=== PATIENT | male | born 1990 | race Two or more races ===

== ENCOUNTER 2022-03-05 16:52 | Outpatient (CLI) | payer OTHER, SELFPAY ==
--- NOTE | ~2022-03-05 | XR_ITS ---
EXAM: XR lumbar spine min 4V DATE: 03/05/2022 17:20 HISTORY: Lumbagow/sciatica,pain shoots down rt side,accident 1mon ago . COMPARISON: None available. FINDINGS: 5 nonrib-bearing lumbar-type vertebral bodies. Pedicles intact. 2 mm retrolisthesis at L5- S1, otherwise normal vertebral body alignment. Vertebral body heights preserved. Disc spaces maintain ed. Normal facets and posterior elements. No pars defect. No fracture or dislocation. IMPRESSION: Grade 1 retrolisthesis at L5-S1. Otherwise normal lumbar spine radiograph findings. Reviewed, dictated and finalized at location K. IMPRESSION: Grade 1 retrolisthesis at L5-S1. Otherwise normal lumbar spine radi ograph findings.
== END 2022-03-05 16:53 | disposition home or self-care (01) ==
LOC: ANHIMG 16:55
PROVIDERS: PCP Emergency Medicine; Visit Provider Emergency Medicine
DX: M54.41 Lumbago with sciatica, right side (principal)
CPT/HCPCS: 72110

== ENCOUNTER 2024-11-18 11:25 | Emergency (ER) | payer OTHER, SELFPAY ==
--- NOTE | ~2024-11-18 | CT_ITS ---
CT abdomen pelvis w con Ordering provider: Dwain Corral MD History: 34 years Male with . Suprapubic pain . Comparison: None. Technique: CT abdomen and pelvis with IV and without oral contrast. Automated exposure control and it erative reconstruction technique were employed. The dose-length product was 358.42 mGy-cm. 100 mL Omn ipaque 350 was given IV. Findings: VISUALIZED LOWER CHEST: Normal. UPPER ABDOMINAL ORGANS: Liver: Normal. Gallbladder: Normal. Spleen: Normal. Stomach/duodenum: Normal. Pancreas: Normal. Adrenals: Normal. Kidneys: Normal. PELVIC ORGANS: The bladder is underfilled. BOWEL AND MESENTERY: Colon: No evidence of diverticulitis. Normal appendix. Small Bowel: Normal. No obstruction. Peritoneum/mesentery: No free air or free fluid. No mesenteric lymphadenopathy. RETROPERITONEUM: Normal aorta. No retroperitoneal lymphadenopathy. MUSCULOSKELETAL: Superficial soft tissues: Small fat-containing umbilical hernia. Otherwise, The superficial soft tiss ues are normal. Bones: Normal spine. IMPRESSION: 1. No evidence of appendicitis, diverticulitis or intestinal obstruction. No definite kidney stones. Reviewed, dictated and finalized at location A. IMPRESSION: 1. No evidence of appendicitis, diverticulitis or intestinal obstruction. No d efinite kidney stones.
[2024-11-18 11:27] VITALS: BP 143/84; PULSE 95; RESP 20; TEMP 36.6; O2SAT 99
[2024-11-18 12:08] LABS: Basophils Percent Auto 0.3 % (0.2-1.2); Eosinophils Absolute Auto 0.1 K/mm3 (0-0.3); Eosinophils Percent Auto 0.7 % (0-4.4); Hematocrit 48.6 % (42.0-52.0); Hemoglobin 16.2 g/dL (14.0-18.0); Immature Granulocyte Absolute 0.03 K/mm3 (0.00-0.031); Immature Granulocyte Percent A 0.4 % (0-0.5); Lymphocytes Absolute Auto 1.89 K/mm3 (0.9-3.2); Mean Corpuscular HGB Conc 33.3 g/dl (32-36); Mean Corpuscular Hemoglobin 28.5 pg (26-34); Mean Corpuscular Volume 85.6 fl (80-100); Mean Platelet Volume 12.7 fl (7.4-10.4); Monocytes Absolute Auto 0.5 K/mm3 (0.1-0.6); Neutrophils Absolute Auto 4.3 K/mm3 (1.3-6.7); Neutrophils Percent Auto 63.6 % (45.5-73.1); Platelet Count Result 177 k/mm3 (150-375); Red Blood Count 5.68 M/mm3 (4.6-6.20); Red Cell Distribution Width 12.4 % (11.5-14.5); White Blood Count 6.8 K/mm3 (4.5-10.0)
[2024-11-18 12:19] LABS: Alanine Aminotransferase 25 U/L (6-50); Albumin Level 5.2 g/dL (3.5-5.1); Alkaline Phosphatase 118 U/L (38-126); Anion Gap 15 mmol/L (4-12); Aspartate Amino Transferase 29 U/L (17-59); Bilirubin,Total 1.1 mg/dL (0.2-1.3); Blood Urea Nitrogen 15 mg/dL (9-20); Calcium 9.6 mg/dL (8.4-10.2); Carbon Dioxide 21 mmol/L (22-30); Chloride 99 mmol/L (98-107); Estimated CRCL calculation 68 ml/min; Estimated Glomerular Filt Rate 59; Glucose 63 mg/dL (65-110); Lipase 205 U/L (23-300); Sodium 135 mmol/L (137-145); Total Protein 8.8 g/dL (6.3-8.2)
[2024-11-18 13:08] LABS: Add Urine Microscopic? YES; Appearance Urine Clear (Clear); Bacteria Urine None Seen /hpf; Bilirubin Urine Negative (Negative); Blood Urine Negative (Negative); Color Urine Yellow (Yellow); Glucose Urine UA Negative (Negative); Ketones Urine 3+ mg/dL (Negative); Leukocyte Esterase Ur Negative LEU/UL (Negative); Nitrate Urine Negative (Negative); Protein Urine Trace mg/dL (Negative); RBC Urine 0-2 /hpf (0-2); Specific Grav Ur 1.026 (1.001-1.035); Squamous Epithelial Cell Urine None Seen /hpf (Few); WBC Urine 0-5 /hpf (0-3)
--- NOTE | 2024-11-18 13:17 | ED_ITS ---
HPI - General Adult General Chief complaint: Abdominal Pain Stated complaint: lower abdominal pain Time Seen by Provider: 11/18/24 11:53 History of Present Illness HPI narrative: This is a 34-year-old presenting with 2 weeks of lower abdominal pain. Patient says that he has burning pain in the suprapubic region and towards the left. It is going on for 2 weeks. It is constant. It is positional and worse when he lays on his side. It does not hurt to touch. There are no overlying skin changes. Patient has nausea although he says he has had nausea his entire life and is not worsened over the last 2 weeks. Last bowel movement was yesterday and was normal. He was seen in [place] 2 weeks ago and had normal blood work and urinalysis. No CT scan. Patient denies fevers chills chest pain difficulty breathing urinary systems concern for STDs penile discharge testicle pain. No history of kidney stones. Patient is very nervous about health. Patient has a typed out list on his phone with about 15 items ranging from occasional headaches in the morning, to lower back pain, to bends in his fingernails. He admits to being very anxious about his health. Related Data Allergies Allergy/AdvReac Type Severity Reaction Status Date / Time No Known Allergies Allergy Verified 11/18/24 11:26 [facility] Social History Social History (Updated 02/28/22 @ 14:52 by Delmy Diaz MA) Smoking status: Never smoker Alcohol intake: never Substance use: never Exam 2 Narrative: APPEARANCE: No apparent distress. Head: atraumatic. EYES: EOMI, NOSE: Atraumatic NECK: Trachea midline RESPIRATORY: No increased rate of breathing CARDIOVASCULAR: RRR, ABDOMINAL: Non-distended soft, nontender no guarding rebound, no masses, no hernia MUSCULOSKELETAl: No obvious deformities NEURO: Alert. Moving 4/4 extremities SKIN:: Warm, dry. Normal color PSYCHIATRIC: Normal affect Course Vital Signs Vital signs: Vital Signs Temperature 97.8 F 11/18/24 11:27 Pulse Rate 95 11/18/24 11:27 Respiratory Rate 20 11/18/24 11:27 Blood Pressure 143/84 H 11/18/24 11:27 Pulse Oximetry 99 11/18/24 11:27 Oxygen Delivery Room Air 11/18/24 11:27 Temperature 97.8 F 11/18/24 11:27 Pulse Rate 95 11/18/24 11:27 Respiratory Rate 20 11/18/24 11:27 Blood Pressure 143/84 H 11/18/24 11:27 Pulse Oximetry 99 11/18/24 11:27 Oxygen Delivery Room Air 11/18/24 11:27 Medical Decision Making MDM Narrative Medical decision making narrative: -Course: 34-year-old male presenting with 2 weeks of burning pain in suprapubic region. Laboratory studies reviewed. CBC normal. Metabolic panel showed a creatinine 1.37. No baseline available. Protein and albumin slightly elevated. Urine not indicative infection. Urine significant for 3+ ketones. Patient says he has not eaten today. CT abdomen pelvis did not reveal any causative findings. Results were discussed patient. I have encouraged follow-up with her primary care physician for management. He develops any new worsening symptoms he should return to the ED for re-evaluation. -DDX includes but is not limited to: UTI, STD, diverticulitis, appendicitis, colitis, peripheral neuropathy Vital Signs Vital Signs: Vital Signs Temperature 97.8 F 11/18/24 11:27 Pulse Rate 95 11/18/24 11:27 Respiratory Rate 20 11/18/24 11:27 Blood Pressure 143/84 H 11/18/24 11:27 Pulse Oximetry 99 11/18/24 11:27 Oxygen Delivery Room Air 11/18/24 11:27 Temperature 97.8 F 11/18/24 11:27 Pulse Rate 95 11/18/24 11:27 Respiratory Rate 11/18/24 11:27 Blood Pressure 143/84 H 11/18/24 11:27 Pulse Oximetry 99 11/18/24 11:27 Oxygen Delivery Room Air 11/18/24 11:27 Lab Data 11/18/24 11:55 11/18/24 11:55 Labs: Lab Results 11/18/24 11/18/24 Range/Units 11:55 12:53 WBC 6.8 (4.5-10.0) K/mm3 RBC 5.68 (4.6-6.20) M/mm3 Hgb 16.2 (14.0-18.0) g/dL Hct 48.6 (42.0-52.0) % MCV 85.6 (80-100) fl MCH 28.5 (26-34) pg MCHC 33.3 (32-36) g/dl RDW 12.4 (11.5-14.5) % Plt Count 177 (150-375) k/mm3 MPV 12.7 H (7.4-10.4) fl Immature Gran % (Auto) 0.4 (0-0.5) % Neut % (Auto) 63.6 (45.5-73.1) % Lymph % (Auto) 28.0 (18.3-44.2) % [place] % (Auto) 7.0 (2.6-8.5) % Eos % (Auto) 0.7 (0-4.4) % Baso % (Auto) 0.3 (0.2-1.2) % Lymph # (Auto) 1.89 (0.9-3.2) K/mm3 [place] # (Auto) 0.5 (0.1-0.6) K/mm3 Eos # (Auto) 0.1 (0-0.3) K/mm3 Baso # (Auto) 0.0 (0.0-0.1) K/mm3 Abs Immat Gran (auto) 0.03 (0.00-0.031) K/mm3 Absolute Neuts (auto) 4.3 (1.3-6.7) K/mm3 Absolute Nucleated RBC 0.000 (0.0-0.012) K/mm3 Nucleated RBC % 0.0 (0.0-0.2) % Sodium 135 L (137-145) mmol/L Potassium 4.0 (3.4-5.0) mmol/L Chloride 99 (98-107) mmol/L Carbon Dioxide 21 L (22-30) mmol/L Anion Gap 15 H (4-12) mmol/L BUN 15 (9-20) mg/dL Creatinine 1.37 H (0.7-1.3) mg/dL Estim Creat Clear Calc 68 ml/min Estimated GFR 59 (59 - ) Glucose 63 L (65-110) mg/dL Calcium 9.6 (8.4-10.2) mg/dL Total Bilirubin 1.1 (0.2-1.3) mg/dL AST 29 (17-59) U/L ALT 25 (6-50) U/L Alkaline Phosphatase 118 (38-126) U/L Total Protein 8.8 H (6.3-8.2) g/dL Albumin 5.2 H (3.5-5.1) g/dL Lipase 205 (23-300) U/L Urine Color Yellow (Yellow) Urine Appearance Clear (Clear) Urine pH 5.0 (5.0-9.0) Ur Specific [place] 1.026 (1.001-1.035) Urine Protein Trace (Negative) mg/dL Urine Glucose (UA) Negative (Negative) mg/dL Urine Ketones 3+ H (Negative) mg/dL Ur Blood (Man) Negative (Negative) Urine Nitrate Negative (Negative) Urine Bilirubin Negative (Negative) Urine Urobilinogen 1.0 (<2.0) mg/dL Leukocyte Esterase Rfl Negative (Negative) BHAVNA/UL Urine RBC 0-2 (0-2) /hpf Urine WBC 0-5 (0-3) /hpf Ur Squamous Epith Cells None seen (Few) /hpf Urine Bacteria None seen /hpf Urine Casts 3-5 Discharge Plan Discharge Clinical Impression: Abdominal pain Patient Disposition: Home Condition: Stable Instructions: Antibiotic Form, Abdominal Pain (ED) Additional Instructions: You were seen in the emergency department for lower abdominal pain. Your laboratory studies urinalysis and CT abdomen pelvis did not cause of your symptoms. Please use Motrin for pain. Please follow-up with your primary care physician for further management Patient Language: Estonian Prescriptions: No Action prednisone 20 mg tablet See Rx Instructions PO DAILY Qty: 32 0RF Rx Instructions: Take 3 tablets by mouth daily for 5 days, then 2 tablets by mouth daily for 5 days, then 1 tablet by mouth daily for 5 days, then 1/2 tablet by mouth daily for 4 days. ibuprofen 600 mg tablet 600 mg PO TID PRN (Reason: pain) Qty: 30 0RF Rx Instructions: Take with food and plenty of water gabapentin 100 mg capsule 100 mg PO TID PRN (Reason: neuropathy) Qty: 30 0RF Follow-up/Referrals: UNKNOWN,DOCTOR [Primary Care Provider] - Lala Simms DO [Physician] - 1 Week (Establish pcp. lower abdominal pain)
== END 2024-11-18 13:38 | disposition home or self-care (01) ==
PROVIDERS: Emergency Medicine; Emergency Provider Emergency Medicine
DX: R10.32 Left lower quadrant pain (principal)
CPT/HCPCS: 36415; 74177; 80053; 81001; 83690; 85025; 99284; Q9967